=== PATIENT | female | born 1945 | race Hispanic/Latino ===

== ENCOUNTER → 2019-02-24 | Outpatient (CLI) | payer OTHER | END | disposition home or self-care (01) | LOC: RAH 11:07 | PROVIDERS: ATTEND Family Medicine | DX: Z12.31 Encounter for screening mammogram for malignant neoplasm of breast (principal) | CPT/HCPCS: 77067 ==

== ENCOUNTER → 2021-05-04 | Outpatient (CLI) | payer OTHER | END | disposition home or self-care (01) | LOC: SLP 19:40 | PROVIDERS: ATTEND Family Medicine | DX: G47.33 Obstructive sleep apnea (adult) (pediatric) (principal); I10 Essential (primary) hypertension; E11.9 Type 2 diabetes mellitus without complications; R53.83 Other fatigue; R35.1 Nocturia; R51.9 Headache, unspecified | CPT/HCPCS: 95810 ==

== ENCOUNTER → 2021-05-18 | Outpatient (CLI) | payer OTHER | END | disposition home or self-care (01) | LOC: SLP 19:42 | PROVIDERS: ATTEND Family Medicine | DX: G47.33 Obstructive sleep apnea (adult) (pediatric) (principal); I10 Essential (primary) hypertension; E11.9 Type 2 diabetes mellitus without complications | CPT/HCPCS: 95811 ==

== ENCOUNTER → 2023-05-29 | Outpatient (CLI) | payer OTHER ==
[2023-05-29 12:52] LABS: ALBUMIN 3.7 g/dL (3.5-5.0); BILIRUBIN,TOTAL 0.4 mg/dL (0.2-1.0); CREATININE 1.4 mg/dL (0.5-1.5); POTASSIUM 4.6 mmol/L (3.5-5.1); TOTAL PROTEIN, SERUM 7.9 g/dL (6.0-8.3)
== END | disposition home or self-care (01) ==
LOC: LAB 10:08
PROVIDERS: ATTEND Internal Medicine Cardiovascular Disease
DX: E78.5 Hyperlipidemia, unspecified (principal); I25.10 Atherosclerotic heart disease of native coronary artery without angina pectoris; I10 Essential (primary) hypertension
CPT/HCPCS: 36415; 80053; 80061

== ENCOUNTER → 2023-10-27 | Outpatient (CLI) | payer OTHER | END | disposition home or self-care (01) | LOC: LAB 09:57 | PROVIDERS: ATTEND Internal Medicine Cardiovascular Disease | DX: E11.40 Type 2 diabetes mellitus with diabetic neuropathy, unspecified (principal); E78.5 Hyperlipidemia, unspecified; D68.59 Other primary thrombophilia | CPT/HCPCS: 36415; 84132 ==

== ENCOUNTER → 2023-11-17 | Outpatient (CLI) | payer OTHER | END | disposition home or self-care (01) | LOC: RAH 13:05 | PROVIDERS: ATTEND Family Medicine | DX: Z12.31 Encounter for screening mammogram for malignant neoplasm of breast (principal); R92.323 Mammographic fibroglandular density, bilateral breasts | CPT/HCPCS: 77067 ==

== ENCOUNTER → 2024-11-01 | Outpatient (CLI) | payer OTHER ==
[2024-11-01] MEDS: REGADENOSON 0.4 MG/5 ML PF SYG IVP ONE (10:39)
--- NOTE | 2024-11-03 09:12 | HMCSR ---
APPROVED REPORT Height: 5 ft 4in Weight: 257 lbs TEST INDICATIONS CAD The imaging protocol used to acquire images was Rest Tc-99m/stress Tc-99m 1 day Consent: The procedure was explained and understood by the patient. Informerd consent was witnessed Abhijeet HELM RN First, low dose rest was performed then high dose stress. RESTING DATA: The resting ekg shows: NSR Rest SPECT myocardial perfusion imaging was performed in supine position 67 minutes following the int ravenous injection of 11.7 mCi of Tc-99 Sestamibi. Time of rest injection: 08:10: Date: 11/01/2024 Time of rest imagin:17: Date: 11/01/2024 PHARMACOLOGIC STRESS: Pharmacologic stress test was performed by injecting regadenoson 0.4 mg IV push followed by the intra venous injection of 32.5 mCi of Tc-99 Sestamibi. Time of stress injection: 09:47: Date: 11/01/2024 Time of stress imagin:10: Date: 11/01/2024 Heart Rate at time of stress injection: 65 bpm. Gated Stress SPECT was performed 83 minutes after stress injection. The images were gated to evaluate regional wall motion and calculate left ventricular ejection fracti on. STRESS DETAILS Reason for Termination: Infusion complete Stress Symptoms: Dyspnea Max HR Achieved: 76 bpm % of APMHR Achieved: 54 Max Blood Pressure: 177/77 mmHg Stress ECG: NSR Study quality was good. Lung uptake was Normal. Artifact: No artifact LEFT VENTRICLE Size: The left ventricular size is normal. Systolic Function:The left ventricular systolic function is normal. Wall Motion: No regional wall motion abnormalities noted. The left ventricular ejection fraction was calculated to be 60%.TID = 0.92. LV PERFUSION Mild to moderate medium size reversible perfusion defect in mid and apical lateral wall. RV Size/Shape Normal RV Conclusion The left ventricular ejection fraction was calculated to be 60%.TID = 0.92. Mild to moderate medium size reversible perfusion defect in mid and apical lateral wall. Low risk, abnormal.
== END | disposition home or self-care (01) ==
LOC: SHCH 07:40
PROVIDERS: ATTEND Internal Medicine Cardiovascular Disease
DX: I25.10 Atherosclerotic heart disease of native coronary artery without angina pectoris (principal)
CPT/HCPCS: 78452; 93017; J2785; A9500 ×2